=== PATIENT | female | born 1985 | race Caucasian/White ===

== ENCOUNTER 2018-07-12 00:36 | Emergency (ER) | payer BC ==
[2018-07-12] MEDS: IBUPROFEN 600 MG TAB PO (06:32)
== END 2018-07-12 06:53 | disposition home or self-care (01) ==
LOC: FTE 00:36
DX: S00.06XA Insect bite (nonvenomous) of scalp, initial encounter (principal); W57.XXXA Bitten or stung by nonvenomous insect and other nonvenomous arthropods, initial encounter; Y92.9 Unspecified place or not applicable
CPT/HCPCS: 99283